=== PATIENT | female | born 1990 | race African-American/Black ===

== ENCOUNTER 2018-12-12 15:10 | Emergency (ER) | payer OTHER | END 2018-12-12 17:47 | disposition home or self-care (01) | LOC: JERFT 15:10 ==

== ENCOUNTER 2019-01-02 09:13 | Day surgery (SDC) | payer OTHER ==
[2019-01-01 09:00] VITALS: BMI 19.7
[~2019-01-02 09:13] MED LIST: BUPIVACAINE HCL/PF 0.5% (5MG/ML) 10 ML VIAL NR ONE; LIDOCAINE HCL 1%, 10 MG/ML (20ML VIAL) NR ONE; ceFAZolin SODIUM 1 GM VIAL IVPB ONE
[2019-01-02] MEDS ORDERED: BUPIVACAINE HCL/PF 0.5% (5MG/ML) 10 ML VIAL ONE (09:47)
[2019-01-02] MEDS ORDERED: LIDOCAINE HCL 1%, 10 MG/ML (20ML VIAL) ONE (09:47)
[2019-01-02 10:10] LABS: BASO % 0.6 % (0-2.0); EOS % 1.4 % (0-4.5); HEMATOCRIT 35.1 % (32.4-45.2); LYMPH % 39.3 % (8-40); MEAN CELL VOLUME 88.1 fl (80-96); MEAN PLT VOLUME 9.1 fl (7.5-11.1); NEUT % 48.7 % (42.8-82.8); PLATELET COUNT 233 K/MM3 (134-434); RBC 3.99 M/mm3 (3.60-5.2); RDW 13.9 % (11.6-15.6); WHITE BLOOD COUNT 4.7 K/mm3 (4.0-10.0)
--- NOTE | 2019-01-02 10:16 | HP ---
History & Physical Update - History History: No Change - Physical Physical: No Change - Assessment Assessment: No Change - Plan Plan: No Change (for excision of right supernumerary nipple; r/b/t/a's d/w the patient in the office; scar discussed; informed consent obtained.)
[2019-01-02 10:25] LABS: INR 1.12 (0.83-1.09); PROTHROMBIN TIME (PATIENT) 13.2 SEC (9.7-13.0)
[2019-01-02 10:41] LABS: BILIRUBIN,TOTAL 0.7 mg/dL (0.2-1); BLOOD UREA NITROGEN 14.3 mg/dL (7-18); CALCIUM 9.2 mg/dL (8.5-10.1); CREATININE 0.9 mg/dL (0.55-1.3); POTASSIUM 4.5 mmol/L (3.5-5.1); TOT PROT 7.7 g/dl (6.4-8.2)
[2019-01-02] MEDS ORDERED: MIDAZOLAM HCL 2 MG/2 ML SINGLE DOSE VIAL ONE ×3 (10:41→10:49)
[2019-01-02] MEDS ORDERED: LIDOCAINE HCL 1%, 10 MG/ML (20ML VIAL) NR ONE (11:01)
[2019-01-02] MEDS ORDERED: BUPIVACAINE HCL/PF 0.5% (5MG/ML) 10 ML VIAL NR ONE (11:01)
--- NOTE | 2019-01-02 11:49 | OP ---
Operative Note - Note: Operative Date: 01/02/19 Pre-Operative Diagnosis: Extranumery nipple Operation: Excision of extranumery nipple Findings: as dictated Post-Operative Diagnosis: Same as Pre-op Surgeon: Gio Gutierrez Dairy Consultant: Jelani Roper Anesthesiologist/PHARMACEUTICAL PLANT OPERATOR: Madie Carson MD Anesthesia: Local (14 cc .25%Marcaine/Lidocaine 1%), MAC Specimens Removed: extranumery nipple sent for frozen Estimated Blood Loss (mls): 5 (ml ) Fluid Volume Replaced (mls): 600 (ml LR ) Operative Report Dictated: Yes
[2019-01-02 12:03] VITALS: TEMP 97.6
--- NOTE | 2019-01-02 12:03 | SURG ---
Surgery Unix Architect Note Unix Architect: Jelani Roper PA-C (Suzy) Date of Service: 01/02/19 Diagnosis: Extranumery nipple Procedure: Excision of extranumery nipple I was present for the entirety of the operative procedure. For further detail, please refer to operative report.
[2019-01-02 14:45] VITALS: BP 120/75; PULSE 73
--- NOTE | 2019-01-03 17:22 | PATH ---
Surgical Pathology Report Patient Name: GERALDINE HERNANDEZ [facility]. Rec. #: [id number] /Age/Gender: 1990 (Age: 28) / F Account: [id number] Location: [facility] SURGICAL Taken: 01/02/2019 Received: 01/02/2019 Reported: 01/03/2019 Physicians: Gio Gutierrez MD Specimen(s) Received EXTRANUMERARY NIPPLE/AREOLA Clinical History Extranumerary nipple right Final Diagnosis "EXTRANUMERARY" NIPPLE/AREOLA, RIGHT, EXCISION: BENIGN NIPPLE,AREOLA, AND UNDERLYING BREAST TISSUE WITH CHRONICALLY INFLAMED EPIDERMAL INCLUSION CYST(S), ASSOCIATED GIANT CELL REACTION, AND REACTIVE CHANGES. Comment: Findings are consistent with involvement of supernumerary nipple by an inflamed epidermal inclusion cyst. Electronically Signed Sofia Maguire M.D. Gross Description Received fresh labeled "extranumerary right nipple/areola," is a 3.7 x 1.4 cm brown, elliptical portion of skin excised to a depth of 2.6 cm. There is a central 1.1 cm in diameter nipple present. There is a short suture marking the superior aspect and a long suture marking the lateral aspect of the specimen, per the surgeon. There is no needle localization wire present. The specimen is inked as follows: Superior blue; inferior green; lateral red; medial yellow; deep black. The specimen is serially sectioned from lateral to medial. Sectioning reveals abundant dense white fibrous tissue. No definitive mass is identified. The specimen is entirely and sequentially submitted in 9 cassettes with the lateral margin in cassette 1 and the medial margin in cassette 9. Total formalin fixation time: Approximately 6 hours DL/01/02/2019/01/02/2019
--- NOTE | 2019-01-08 14:37 | OP ---
DATE OF OPERATION: 01/02/2019 PREOPERATIVE DIAGNOSIS: Right chest wall extranumerary nipple. POSTOPERATIVE DIAGNOSIS: Right chest wall extranumerary nipple. PROCEDURE: Excision of right chest wall extranumerary nipple-areolar complex. SURGEON: Gio Gutierrez MD RURAL SERVICE ENGINEER: Jelani Roper PA-C ANESTHESIA: Local with IV sedation. OPERATIVE FINDINGS: There was a supernumerary nipple and areola on the right chest wall in the milk line. The rest of the findings were unremarkable. PROCEDURE: The patient was placed on the operating table in supine position and the right chest wall and the surgical area that was previously marked was prepped with ChloraPrep and draped in sterile fashion. A timeout was taken and then an elliptical incision mapped out around the extranumerary nipple-areolar complex and the area infiltrated with 1% Xylocaine and 0.5% Marcaine. Incision was made with a scalpel and taken down through the skin and subcutaneous tissue of the chest wall. The specimen was oriented with a short suture at the superior and a long suture for lateral, and was passed off the operative field and sent fresh for pathological examination. Hemostasis was secured with electrocautery and the wound copiously irrigated with sterile water. The incision was closed in layers with interrupted 3-0 Vicryl for the deep dermis and 4-0 Monocryl in a subcuticular continuous fashion to reapproximate the skin edges. Steri-Strips and dry sterile dressings and a Tegaderm were placed and the procedure terminated at this point and the patient transferred to the post-anesthesia care unit in stable condition, awake and alert. Estimated blood loss 5 mL. Replacement was crystalloid. Drains: None. Specimen: Right chest wall extranumerary nipple and areolar complex to Pathology. I, Gio Gutierrez, was physically present in the operating room from the time the patient was placed on the operating room table until she was transferred to the post-anesthesia care unit in my accompaniment. MD STACEY Villa/[id number] MTDD
== END 2019-01-02 14:10 | disposition home or self-care (01) ==
LOC: JASU-SURG 09:13
PROVIDERS: ATTEND Surgery
PROC: 0HBW0ZZ Excision of Right Nipple, Open Approach (ICD-10-PCS; principal; 2019-01-02 10:30)
DX: Q83.3 Accessory nipple (principal)
CPT/HCPCS: 36415; 80053; 84703; 85025; 85610; 88305-TC

== ENCOUNTER 2019-05-25 07:55 | Emergency (ER) | payer OTHER ==
[2019-05-25 08:01] VITALS: BP 104/75; PULSE 77; BMI 43.1
[2019-05-25 08:02] VITALS: TEMP 97.7
--- NOTE | 2019-05-25 08:49 | PDOC ---
History of Present Illness - General Chief Complaint: Injury Stated Complaint: PAIN LEFT KNEE,FALL 3 DAYS AGO Time Seen by Provider: 05/25/19 08:33 History Source: Patient Exam Limitations: No Limitations Past History - Past Medical History Allergies/Adverse Reactions: Allergies Allergy/AdvReac Type Severity Reaction Status Date / Time cat dander Allergy Verified 05/25/19 07:57 gluten Allergy Verified 05/25/19 07:57 No Known Drug Allergies Allergy Verified 05/25/19 07:57 cats Allergy Uncoded 05/25/19 07:57 dust Allergy Uncoded 05/25/19 07:57 Home Medications: Ambulatory Orders NK [No Known Home Medication] 01/01/19 Anemia: No Asthma: No Cancer: No Cardiac Disorders: No CVA: No COPD: No CHF: No Dementia: No Diabetes: No GI Disorders: No Disorders: No HTN: No Hypercholesterolemia: No Liver Disease: No Seizures: No Thyroid Disease: No - Psycho Social/Smoking Cessation Hx Smoking History: Never smoked Have you smoked in the past 12 months: No Hx Alcohol Use: Yes Drug/Substance Use Hx: No Substance Use Type: None Hx Substance Use Treatment: No *Physical Exam - Vital Signs Last Vital Signs Temp Pulse Resp BP Pulse Ox 97.7 F 77 14 104/75 100 05/25/19 07:57 05/25/19 07:57 05/25/19 07:57 05/25/19 07:57 05/25/19 07:57 - Physical Exam General Appearance: No: Apparent Distress Extremity: positive: Other (+skin tear/abrasion along L knee, no swelling or ecchymosis, no joint effusion, no joint laxity noted, no TTP along joint, able to flex and extend joint) Integumentary: negative: Swelling, Ecchymosis, Bruising Neurologic: positive: Alert, Normal Mood/Affect ED Treatment Course - RADIOLOGY Radiology Studies Ordered: Category Date Time Status KNEE 3 POS-LEFT [RAD] Stat Radiology 05/25/19 08:39 Ordered Medical Decision Making - Medical Decision Making 28 y/o F with no sig pmh presents with L knee pain s/p fall 2 days ago. States she was running to catch bus and her left knee gave out and she fell. Denies fever, other injuries Plan: Xray to r/o fracture 05/25/19 08:49 Xray negative Bacitracin applied over abrasion Not suspicious for ligament/meniscal injury based on exam L knee tanika-wrapped for comfort 05/25/19 09:06 Discharge - Discharge Information Problems reviewed: Yes Clinical Impression/Diagnosis: Left knee injury Qualifiers: Encounter type: initial encounter Qualified Code(s): S89.92XA - Unspecified injury of left lower leg, initial encounter Condition: Stable Disposition: HOME - Admission No - Additional Discharge Information Prescription Drug Monitoring Program (I-STOP) results: I-STOP not reviewed - Follow up/Referral - Patient Discharge Instructions Additional Instructions: Thank you for choosing [facility]. It was a pleasure taking care of you. You may take Motrin 600 mg every 6 hours by mouth as needed for mild to moderate pain. Take Motrin with food. You may apply Bacitracin or Neosporin over site of injury Return to the Emergency Department if your symptoms worsen or persist or have other concerning symptoms. - Post Discharge Activity
[2019-05-25] MEDS ORDERED: BACITRACIN 0.9 GM PACKET ONE (08:56)
== END 2019-05-25 09:07 | disposition home or self-care (01) ==
LOC: JER 07:55 → JERFT 07:55
DX: S89.82XA Other specified injuries of left lower leg, initial encounter (principal); M25.562 Pain in left knee; W18.39XA Other fall on same level, initial encounter; Y93.02 Activity, running; Y92.480 Sidewalk as the place of occurrence of the external cause; Y99.8 Other external cause status; Z91.048 Other nonmedicinal substance allergy status
CPT/HCPCS: 73562-TC-LT-FY; 99281-25